=== PATIENT | female | born 1985 | race Caucasian/White ===

== ENCOUNTER 2024-08-10 00:33 | Emergency (ER) | payer OTHER ==
[~2024-08-10] VITALS: Ht 160 cm; Wt 83.5 kg
[2024-08-10] MEDS ORDERED: PENI500T PO (02:52)
[2024-08-10] MEDS ORDERED: KETO10TA2 PO (02:52)
[2024-08-10] MEDS ORDERED: HYDROMORPHONE 1 MG/1 ML DISP.SYRIN ONE (03:00)
[2024-08-10] MEDS ORDERED: ONDANSETRON 4 MG TAB.RAPDIS ONE (03:00)
[2024-08-10] MEDS: ONDANSETRON 4 MG TAB.RAPDIS PO ONE (03:03)
[2024-08-10] MEDS: HYDROMORPHONE 1 MG/1 ML DISP.SYRIN IM ONE (03:04)
[2024-08-10] MEDS: PENICILLIN V POTASSIUM 500 MG TABLET PO ONE (03:05)
[2024-08-10 03:42] VITALS: BP 162/91; TEMP 98.4; O2SAT 99
== END 2024-08-10 03:42 | disposition home or self-care (01) ==
LOC: ER 00:44
DX: K04.7 Periapical abscess without sinus (principal); Z60.2 Problems related to living alone
CPT/HCPCS: J1171; Q0162